=== PATIENT | female | born 1995 | race Caucasian/White ===

== ENCOUNTER 2016-11-18 09:21 | Emergency (ER) | payer OTHER ==
[2016-11-18 09:29] VITALS: BMI 35.9
[2016-11-18 09:31] VITALS: BP 126/59; PULSE 84; RESP 19; TEMP 98.5; O2SAT 98
--- NOTE | 2016-11-18 10:23 | ED PDOC ---
HPI: Psych/Substance Abuse Time Seen by Provider: 11/18/16 09:54 Chief Complaint (Nursing): Psychiatric Evaluation Chief Complaint (Provider): crisis evaluation History Per: Patient History/Exam Limitations: no limitations Onset/Duration Of Symptoms: Unknown Additional Complaint(s): Alyssia Goldman is a 21 year old female, with no previous medical or psychiatric history, who presents to the ED requesting for a crisis evaluation because she feels she may have ADHD ongoing since high school. Patient reports having difficulty focusing. She denies any suicidal ideation, homicidal ideation , hallucinations or medical complaints. PMD: Leilani Childress MD Past Medical History Reviewed: Historical Data, Nursing Documentation, Vital Signs Vital Signs: Last Vital Signs Temp 98.5 F 11/18/16 09:29 Pulse 84 11/18/16 09:29 Resp 19 11/18/16 09:29 BP 126/59 L 11/18/16 09:29 Pulse Ox 98 11/18/16 09:34 - Medical History PMH: No Chronic Diseases Denies: Chronic Kidney Disease - Surgical History Surgical History: Tonsillectomy - Family History Family History: States: Unknown Family Hx - Home Medications Home Medications: Ambulatory Orders Medication Instructions Recorded Phentermine Hydrochloride 1 tab PO DAILY 06/10/14 [Phentermine HCl] - Allergies Allergies/Adverse Reactions: Allergies Allergy/AdvReac Type Severity Reaction Status Date / Time No Known Allergies Allergy Verified 06/02/14 11:10 Review of Systems ROS Statement: Except As Marked, All Systems Reviewed And Found Negative Psych: Positive for: Other (ADHD) Physical Exam - Reviewed Nursing Documentation Reviewed: Yes Vital Signs Reviewed: Yes - Physical Exam Appears: Positive for: Well, Non-toxic, No Acute Distress Head Exam: Positive for: ATRAUMATIC, NORMAL INSPECTION, NORMOCEPHALIC Skin: Positive for: Normal Color, Warm, DRY Eye Exam: Positive for: EOMI, Normal appearance, PERRL ENT: Positive for: Normal ENT Inspection Neck: Positive for: Normal, Painless ROM Cardiovascular/Chest: Positive for: Regular Rate, Rhythm Respiratory: Positive for: CNT, Normal Breath Sounds Gastrointestinal/Abdominal: Positive for: Normal Exam, Bowel Sounds, Soft Back: Positive for: Normal Inspection Extremity: Positive for: Normal ROM Neurologic/Psych: Positive for: Alert, Oriented - ECG O2 Sat by Pulse Oximetry: 98 (RA) Pulse Ox Interpretation: Normal Medical Decision Making Medical Decision Making: Initial Impression: crisis evaluation Initial Plan: * crisis evaluation Scribe Attestation: Documented by Lainey Clemente, acting as a scribe for Lainey Macedo MD. Provider Scribe Attestation: All medical record entries made by the Scribe were at my direction and personally dictated by me. I have reviewed the chart and agree that the record accurately reflects my personal performance of the history, physical exam, medical decision making, and the department course for this patient. I have also personally directed, reviewed, and agree with the discharge instructions and disposition.
== END 2016-11-18 11:20 | disposition home or self-care (01) ==
LOC: H.ER 09:21
DX: F90.9 Attention-deficit hyperactivity disorder, unspecified type (principal)